=== PATIENT | female | born 1940 | race Caucasian/White ===

== ENCOUNTER → 2016-12-28 | Outpatient (CLI) | payer MEDICARE, BC ==
--- NOTE | 2016-12-28 15:03 | PCVCIMAG ---
EXAM: DUPLEX ULTRASOUND OF THE RIGHT GROIN INDICATION: Groin swelling and pain. FINDINGS: No pseudoaneurysm is present. The common femoral artery and vein are patent. No arteriovenous fistula is seen. IMPRESSION: Study is negative for pseudoaneurysm. LOC:OFFICE
== END | disposition home or self-care (01) ==
LOC: PCVCIMAG 11:26
PROVIDERS: ATTEND Internal Medicine Cardiovascular Disease
DX: R19.00 Intra-abdominal and pelvic swelling, mass and lump, unspecified site (principal); R10.9 Unspecified abdominal pain
CPT/HCPCS: 93926